=== PATIENT | male | born 1960 | race African-American/Black ===

== ENCOUNTER 2018-11-17 16:23 | Emergency (ER) | payer MEDICARE, OTHER ==
[~2018-11-17] VITALS: Ht 175.3 cm; Wt 86.2 kg
[~2018-11-17 16:23] MED LIST: NKM
--- NOTE | 2018-11-17 16:52 | NUR ---
ED Nurse Note: a/ox4. ambulated in to ER due to left knee pain 08/20 after metal part of a chair landed on his left knee last saturday.
[2018-11-17] MEDS ORDERED: Ketorolac 30mg Inj IM ONE (17:00)
--- NOTE | 2018-11-17 17:04 | Emergency Room Report ---
History of Present Illness General Chief Complaint: Lower Extremity Injury Source: Patient Present Illness HPI 58-year-old male patient presents the ER complaining of left knee pain times 3 days. Patient reports that he was in [place] gambling when a chair broke and fell onto his left knee. Reports pain with ambulation. States not take any pain medication for relief of symptoms. Denies head trauma. Reports has applied ice to affected area. Denies fever, chest pain, shortness of breath. Allergies: Coded Allergies: No Known Allergies (Unverified , 07/13/13) Patient History Past Medical History: see triage record Reviewed Nursing Documentation: PMH: Agreed; PSxH: Agreed Nursing Documentation-PMH Past Medical History: No Stated History Review of Systems All Other Systems: negative except mentioned in HPI Physical Exam Vital Signs Date Time Temp Pulse Resp B/P (MAP) Pulse Ox O2 Delivery O2 Flow Rate FiO2 11/17/18 16:49 98.6 100 22 107/74 96 Room Air Sp02 EP Interpretation: reviewed, normal General Appearance: well appearing, no apparent distress, alert, GCS 15, non- toxic Head: normocephalic, atraumatic Eyes: bilateral eye normal inspection, bilateral eye PERRL ENT: hearing grossly normal, normal pharynx, no angioedema, normal voice, uvula midline, moist mucus membranes Neck: full range of motion Respiratory: lungs clear, normal breath sounds, no rhonchi, no respiratory distress, no accessory muscle use, no wheezing, speaking full sentences Cardiovascular #1: regular rate, rhythm, no edema Musculoskeletal: back normal, digits/nails normal, gait/station normal, normal range of motion, no calf tenderness, Marcel's Sign negative, other - NVI, no edema, no erythema, no defomrity, no laxity with varus or valgus stress, tender - Distal anterior knee, no deformity Skin: no rash Medical Decision Making PA Attestation Dr. Young is my supervising Physician whom patient management has been discussed with. Diagnostic Impression: Primary Impression: Contusion of knee, left ER Course Pt. presents to the ED c/o left knee pain. Ddx considered but are not limited to fracture, sprain, strain, contusion, dislocation. No erythema, no warmth to touch, no fever, nontoxic appearing, low suspicion for septic joint. Soft compartments, no pulselessness, no pallor, no paresthesias, low suspicion for compartment syndrome at this time. Vital signs: are WNL, pt. is afebrile Ordered X-ray and pain medication. ER COURSE Provided with pain medication. An X-ray of the left knee shows negative for acute disease per the preliminary reading. Likely contusion causing pain symptoms. Ravi wrap was applied to the left knee and was checked afterwards by me showing good alignment and support with distal neurovascular functioning intact. Crutches provided. Patient instructed on RICE method: rest, ice, compression, elevation. Patient instructed on rest, ice and heat. Patient instructed to be WBAT Contact information for orthopedic urgent care provided, follow-up with urgent care if unable to followup with primary care provider and get referral to category specialist. Followup with primary care provider. Discuss referral to ortho/pain management/ PT as needed. Discuss further imaging with MRI/CT as needed. DISCHARGE: At this time pt. is stable for d/c to home. Patient is resting comfortably, in no acute distress, nontoxic appearing, talking without difficulty. Will provide printed patient care instructions, and any necessary prescriptions. Patient instructed to follow with primary care provider in 3 - 5 days and to request further follow-up as needed. Care plan and follow up instructions have been discussed with the patient prior to discharge. Take medications as directed. Patient questions asked and answered. Patient reports understanding and agreement to treatment plan. ER precautions given, patient instructed to return to ER immediately for any new or worsening of symptoms. - Please note that this Emergency Department Report was dictated using [employer] burner technology software, occasionally this can lead to erroneous entry secondary to interpretation by the dictation equipment. Other X-Ray Diagnostic Results Other X-Ray Diagnostic Results : X-Ray ordered: left knee # of Views/Limited Vs Complete: 3 View Indication: Pain EP Interpretation: Yes PA Xray: Interpretation reviewed, by supervising MD, and agrees with findings. Interpretation: no dislocation, no soft tissue swelling, no fractures Impression: No acute disease ADITYA Scribe Text Felix Pace PA-C Last Vital Signs Date Time Temp Pulse Resp B/P (MAP) Pulse Ox O2 Delivery O2 Flow Rate FiO2 11/17/18 16:49 98.6 100 22 107/74 96 Room Air Status: improved Disposition: HOME, SELF-CARE Condition: Stable Scripts Ibuprofen* (MOTRIN*) 600 Mg Tablet 600 MG ORAL THREE TIMES A DAY, #30 TAB 0 Refills Prov: Elmer Pace 11/17/18 Patient Instructions: Knee Pain, Aune-hc-Edss Additional Instructions: Patient instructed to follow up with primary care provider and discuss further referral to orthopedics/physical therapy/pain management as needed. If unable to followup with PCP, followup with orthopedic urgent care in 5-7 days , call to schedule appointment. Patient instructed on RICE method: rest, ice, compression, elevation. Patient instructed to WBAT. Take medications as directed. Patient questions asked and answered. ER precautions given, patient instructed to return to ER immediately for any new or worsening of symptoms. [facility] [address] [facility] [facility], [address] [email or web address] Elmer Pace Nov 17, 2018 17:04
[2018-11-17] MEDS ORDERED: IBUPROFEN600 MG ORAL (18:10)
[2018-11-17 18:16] VITALS: BP 110/78
--- NOTE | 2018-11-17 18:17 | NUR ---
ED Nurse Note: Patient is being discharged from medical care. Awake, alert and oriented x4. After care instructions, including prescriptions. Patient verbalized understanding of After care instructions. Patient signed patient consent in the medical record for patient destination upon discharge. All medical devices such as IV and ID band were removed. Ravi wrap applied and educated pt about how to use crutches, pt was able to perform well. Patient ambulated out with all personal belongings with steady gait.
--- NOTE | 2018-11-18 13:35 | Diagnostic Imaging Report ---
Indication: Knee Pain 3 views of the left knee were obtained. Findings: No acute fracture, malalignment, or joint effusion are identified. Joint space is relatively well-maintained. Impression: Negative for acute injury
== END 2018-11-17 18:18 | disposition home or self-care (01) ==
LOC: EMR 17:35
DX: S80.02XA Contusion of left knee, initial encounter (principal); W22.8XXA Striking against or struck by other objects, initial encounter; Y92.9 Unspecified place or not applicable
CPT/HCPCS: 73562; 96372; 99283; J1885

== ENCOUNTER 2019-11-23 20:04 | Inpatient (IN) | payer MEDICARE ==
[~2019-11-23] VITALS: Ht 172.7 cm; Wt 93.0 kg
[~2019-11-23 20:04] MED LIST changes: +IBUPROFEN600 MG ORAL
--- NOTE | 2019-11-23 22:20 | NUR ---
NURSE NOTES: Charge nurse received Report from [facility] regarding pt transfer for direct admission. Will wait for arrival of pt
--- NOTE | 2019-11-23 23:00 | NUR ---
NURSE NOTES: Pt arrived to the unit via gurney, awake. Pt transferred to bed.. A/Ox4, breaths even regular and unlabored on R/A. No s/s of respiratory distress. Pt last Bm 11/23/19 , pt is continent both B/B . Pt skin intact. I.v site on LAC 20G , no i.v fluids. Oriented pt the room, bed . Call light with in reach bed in low position
[2019-11-24] MEDS ORDERED: Morphine Sulfate 2mg/ml Inj(IV/IM USE ONLY) IVP PRN (01:30)
[2019-11-24 04:00] VITALS: BP 139/87
[2019-11-24] MEDS: Morphine Sulfate 2mg/ml Inj(IV/IM USE ONLY) IVP PRN ×4 (04:07→21:16)
[2019-11-24] MEDS: D5 1/2NS w/KCl 20mEq 1,000 ML IV SCH ×2 (05:01→16:20)
[2019-11-24 06:53] LABS: INR 0.9 (0.9-1.1)
[2019-11-24 07:03] LABS: BASOPHILS % (AUTO) 0.9 % (0.0-2.0); EOSINOPHILS % (AUTO) 2.9 % (0.0-3.0); HEMATOCRIT 41.8 % (42.0-52.0); HEMOGLOBIN 14.3 G/DL (14.2-18.0); LYMPHOCYTES % (AUTO) 26.2 % (20.0-45.0); MEAN CORPUSCULAR VOLUME 91 FL (80-99); MONOCYTES % (AUTO) 8.4 % (1.0-10.0); NEUTROPHILS % (AUTO) 61.6 % (45.0-75.0); PLATELET COUNT 252 K/UL (150-450); RED BLOOD COUNT 4.61 M/UL (4.70-6.10); RED CELL DISTRIBUTION WIDTH 10.9 % (11.6-14.8)
[2019-11-24 07:17] LABS: ALANINE AMINOTRANSFERASE 18 U/L (12-78); ALBUMIN/GLOBULIN RATIO 0.7 (1.0-2.7); ALKALINE PHOSPHATASE 48 U/L (46-116); ANION GAP 9 mmol/L (5-15); ASPARTATE AMINO TRANSFERASE 18 U/L (15-37); BILIRUBIN,TOTAL 0.5 MG/DL (0.2-1.0); BLOOD UREA NITROGEN 7 mg/dL (7-18); CALCIUM 8.1 MG/DL (8.5-10.1); CARBON DIOXIDE 26 MMOL/L (21-32); CHLORIDE 107 MMOL/L (98-107); CREATININE 1.2 MG/DL (0.55-1.30); PHOSPHORUS 3.7 MG/DL (2.5-4.9); POTASSIUM 4.4 MMOL/L (3.5-5.1); SODIUM 142 MMOL/L (136-145)
--- NOTE | 2019-11-24 07:30 | NUR ---
NURSE NOTES: Patient is in bed awake and able to verbalize needs. Stable. Denies pain or SOB. Patient is NPO and aware of procedure today. Patient instructed to use call light for assistance, verbalized understanding. Patient is in bed in locked and lowest position with call light within reach. Will continue to monitor.
--- NOTE | 2019-11-24 07:54 | NUR ---
HAND-OFF: Report given to JOCELYNN Cat.
[2019-11-24 08:00] VITALS: BP 97/59
--- NOTE | 2019-11-24 09:03 | NUR ---
RADIOLOGY DEPT., ABDOMEN X-RAY DONE. P.DYE
--- NOTE | 2019-11-24 09:09 | Diagnostic Imaging Report ---
. Indication: Abdominal pain Technique: Supine view of the abdomen Comparison: none Findings: Contrast is seen within the colon. Small bowel loops are gas-filled, prominent in caliber but not frankly dilated. No masses or unusual calcifications. Impression: No acute process
[2019-11-24 12:00] VITALS: BP 105/73
--- NOTE | 2019-11-24 12:23 | Consultation ---
History of Present Illness General Date patient seen: Nov 24, 2019 Reason for Consultation: inpatient management Present Illness HPI 59 year old male with hx of neck fracture 2004 leading to disability, presented to [facility] with CC of crampy abdominal pain after eating a full can of peanuts. His CT of abdomen showed possible early partial SBO. He is transferred to [facility] for further management. Allergies: Coded Allergies: No Known Allergies (Unverified , 07/13/13) Medication History Scheduled Ibuprofen* (Motrin*), 600 MG ORAL THREE TIMES A DAY No Known Medications* (NKM - No Known Medications*), 0 ., (Reported) Patient History Healthcare decision maker Resuscitation status Advanced Directive on File Family History Family History: (1) History of neck injury Review of Systems All Other Systems: negative except mentioned in HPI Physical Exam General Appearance: WD/WN, no apparent distress Lines, tubes and drains: peripheral HEENT: normocephalic, atraumatic Neck: non-tender, normal alignment Respiratory/Chest: chest wall non-tender, lungs clear Breasts: no masses Cardiovascular/Chest: normal peripheral pulses, normal rate Abdomen: normal bowel sounds Genitourinary/Rectal: normal genital exam, normal rectal exam Extremities: normal range of motion Last 24 Hour Vital Signs Date Time Temp Pulse Resp B/P (MAP) Pulse Ox O2 Delivery O2 Flow Rate FiO2 11/24/19 09:00 Room Air 11/24/19 08:00 98.4 81 20 97/59 (72) 81 11/24/19 04:00 98.2 95 20 139/87 (104) 95 11/24/19 01:46 Room Air Intake and Output 11/23/19 11/24/19 19:00 07:00 Intake Total 150 ml Balance 150 ml Intake IV Total 150 ml # Voids 3 # Bowel Movements 3 Laboratory Tests Test 11/24/19 04:45 White Blood Count 9.0 K/UL (4.8-10.8) Red Blood Count 4.61 M/UL (4.70-6.10) L Hemoglobin 14.3 G/DL (14.2-18.0) Hematocrit 41.8 % (42.0-52.0) L Mean Corpuscular Volume 91 FL (80-99) Mean Corpuscular Hemoglobin 31.1 PG (27.0-31.0) H Mean Corpuscular Hemoglobin Concent 34.3 G/DL (32.0-36.0) Red Cell Distribution Width 10.9 % (11.6-14.8) L Platelet Count 252 K/UL (150-450) Mean Platelet Volume 4.6 FL (6.5-10.1) L Neutrophils (%) (Auto) 61.6 % (45.0-75.0) Lymphocytes (%) (Auto) 26.2 % (20.0-45.0) Monocytes (%) (Auto) 8.4 % (1.0-10.0) Eosinophils (%) (Auto) 2.9 % (0.0-3.0) Basophils (%) (Auto) 0.9 % (0.0-2.0) Prothrombin Time 9.8 SEC (9.30-11.50) Prothromb Time International Ratio 0.9 (0.9-1.1) Activated Partial Thromboplast Time 27 SEC (23-33) Sodium Level 142 MMOL/L (136-145) Potassium Level 4.4 MMOL/L (3.5-5.1) Chloride Level 107 MMOL/L (98-107) Carbon Dioxide Level 26 MMOL/L (21-32) Anion Gap 9 mmol/L (5-15) Blood Urea Nitrogen 7 mg/dL (7-18) Creatinine 1.2 MG/DL (0.55-1.30) Estimat Glomerular Filtration Rate > 60 mL/min (>60) Glucose Level 82 MG/DL (74-106) Calcium Level 8.1 MG/DL (8.5-10.1) L Phosphorus Level 3.7 MG/DL (2.5-4.9) Magnesium Level 1.9 MG/DL (1.8-2.4) Total Bilirubin 0.5 MG/DL (0.2-1.0) Aspartate Amino Transf (AST/SGOT) 18 U/L (15-37) Alanine Aminotransferase (ALT/SGPT) 18 U/L (12-78) Alkaline Phosphatase 48 U/L (46-116) Total Protein 7.2 G/DL (6.4-8.2) Albumin 3.0 G/DL (3.4-5.0) L Globulin 4.2 g/dL Albumin/Globulin Ratio 0.7 (1.0-2.7) L Height (Feet): 5 Height (Inches): 10.00 Weight (Pounds): 213 Medications Current Medications Medications (Trade) Dose Ordered Sig/Delmy Route PRN Reason Start Time Stop Time Status Last Admin Dose Admin Acetaminophen (Tylenol) 650 mg Q6H PRN ORAL Mild Pain/Temp > 100.5 11/24/19 01:30 12/24/19 01:29 Dextrose/ Electrolytes 1,000 ml @ 75 mls/hr [id number] IV 11/24/19 03:00 12/24/19 02:59 11/24/19 05:01 Morphine Sulfate (Morphine Sulfate) 2 mg Q4H PRN IVP Moderate Pain (Pain Scale 4-6) 11/24/19 03:30 12/01/19 01:29 11/24/19 11:22 Ondansetron HCl (Zofran) 4 mg Q4HR PRN IVP Nausea & Vomiting 11/24/19 01:45 12/24/19 01:44 Assessment/Plan Problem List: (1) Intractable abdominal pain ICD Codes: R10.9 - Unspecified abdominal pain SNOMED: 36614926 (2) Small bowel obstruction ICD Codes: K56.609 - Unspecified intestinal obstruction, unspecified as to partial versus complete obstruction SNOMED: 902885292 (3) History of neck injury ICD Codes: Z87.828 - Personal history of other (healed) physical injury and trauma SNOMED: 355614410 Assessment/Plan: NPO iv hydration check electrolytes KUB in am check amylase and lipase dvt prophylaxis Eliane La MD Nov 24, 2019 12:23
--- NOTE | 2019-11-24 13:26 | Consultation ---
History of Present Illness General Date patient seen: Nov 24, 2019 Present Illness HPI This is a pleasant 59-year-old male who presented to [facility] after being transferred from [place] for evaluation of potential bowel obstruction. Patient states he was in otherwise normal state of health until 2 nights ago when he was up late watching TV and ended up eating a whole can of peanuts. Went to sleep without issue and woke up feeling crampy abdominal pain. Began to have worsening abdominal discomfort and nausea. Had normal bowel movement but did not feel better. Had some stool softener given to him by his friend and still persisted to have abdominal discomfort then began to have diarrhea. Went to [place] for evaluation at which time was identified to have potential bowel obstruction versus bowel inflammation. Transferred to [facility] for further care and management given insurance reasons. Patient seen, patient evaluated, chart reviewed still complaining abdominal pain and states the morphine makes it feel better pain 6 out of 10 without radiation Allergies: Coded Allergies: No Known Allergies (Unverified , 07/13/13) Medication History Scheduled Ibuprofen* (Motrin*), 600 MG ORAL THREE TIMES A DAY No Known Medications* (NKM - No Known Medications*), 0 ., (Reported) Patient History History Provided By: Patient, Medical Record Healthcare decision maker Resuscitation status Advanced Directive on File Past Medical/Surgical History Past Medical/Surgical History: (1) Drug abuse (2) History of neck injury (3) Small bowel obstruction (4) Intractable abdominal pain Review of Systems Review of Symptoms General ROS: no weight loss or fever Psychological ROS: no depression or mood changes, no memory loss Ophthalmic ROS: no visual changes or eye irritation ENT ROS: no nasal congestion, hearing loss, dizziness Allergy and Immunology ROS: no allergic symptoms or urticaria Hematological and Lymphatic ROS: no swollen glands, unusual bleeding or bruising Endocrine ROS: no polyuria, polydipsia, weight changes, temperature intolerance Respiratory ROS: no cough, shortness of breath, or wheezing Cardiovascular ROS: no chest pain or dyspnea on exertion Gastrointestinal ROS: abdominal pain, bright red blood in stool. Musculoskeletal ROS: no myalgias or arthralgias Neurological ROS: no TIA or stroke symptoms Dermatological ROS: no new or changing skin lesions, rashes or pruritis Physical Exam Physical Exam General appearance: alert, cooperative, no distress, appears stated age Head: Normocephalic, without obvious abnormality, atraumatic Eyes: conjunctivae/corneas clear. PERRL, EOM's intact. Fundi benign Throat: Lips, mucosa, and tongue normal. Teeth and gums normal Neck: supple, symmetrical, trachea midline, no adenopathy, thyroid: not enlarged, symmetric, no tenderness/mass/nodules, no carotid bruit and no JVD Lungs: clear to auscultation bilaterally Heart: regular rate and rhythm, S1, S2 normal, no murmur, click, rub or gallop Abdomen: soft, non-tender. Bowel sounds normal. No masses, no organomegaly Extremities: extremities normal, atraumatic, no cyanosis or edema Pulses: 2+ and symmetric Skin: Skin color, texture, turgor normal. No rashes or lesions Neurologic: Grossly normal Last 24 Hour Vital Signs Date Time Temp Pulse Resp B/P (MAP) Pulse Ox O2 Delivery O2 Flow Rate FiO2 11/24/19 12:00 98.6 70 18 105/73 (84) 97 11/24/19 09:00 Room Air 11/24/19 08:00 98.4 81 20 97/59 (72) 98 11/24/19 04:00 98.2 95 20 139/87 (104) 95 11/24/19 01:46 Room Air Intake and Output 11/23/19 11/24/19 19:00 07:00 Intake Total 150 ml Balance 150 ml Intake IV Total 150 ml # Voids 3 # Bowel Movements 3 Laboratory Tests Test 11/24/19 04:45 White Blood Count 9.0 K/UL (4.8-10.8) Red Blood Count 4.61 M/UL (4.70-6.10) L Hemoglobin 14.3 G/DL (14.2-18.0) Hematocrit 41.8 % (42.0-52.0) L Mean Corpuscular Volume 91 FL (80-99) Mean Corpuscular Hemoglobin 31.1 PG (27.0-31.0) H Mean Corpuscular Hemoglobin Concent 34.3 G/DL (32.0-36.0) Red Cell Distribution Width 10.9 % (11.6-14.8) L Platelet Count 252 K/UL (150-450) Mean Platelet Volume 4.6 FL (6.5-10.1) L Neutrophils (%) (Auto) 61.6 % (45.0-75.0) Lymphocytes (%) (Auto) 26.2 % (20.0-45.0) Monocytes (%) (Auto) 8.4 % (1.0-10.0) Eosinophils (%) (Auto) 2.9 % (0.0-3.0) Basophils (%) (Auto) 0.9 % (0.0-2.0) Prothrombin Time 9.8 SEC (9.30-11.50) Prothromb Time International Ratio 0.9 (0.9-1.1) Activated Partial Thromboplast Time 27 SEC (23-33) Sodium Level 142 MMOL/L (136-145) Potassium Level 4.4 MMOL/L (3.5-5.1) Chloride Level 107 MMOL/L (98-107) Carbon Dioxide Level 26 MMOL/L (21-32) Anion Gap 9 mmol/L (5-15) Blood Urea Nitrogen 7 mg/dL (7-18) Creatinine 1.2 MG/DL (0.55-1.30) Estimat Glomerular Filtration Rate > 60 mL/min (>60) Glucose Level 82 MG/DL (74-106) Calcium Level 8.1 MG/DL (8.5-10.1) L Phosphorus Level 3.7 MG/DL (2.5-4.9) Magnesium Level 1.9 MG/DL (1.8-2.4) Total Bilirubin 0.5 MG/DL (0.2-1.0) Aspartate Amino Transf (AST/SGOT) 18 U/L (15-37) Alanine Aminotransferase (ALT/SGPT) 18 U/L (12-78) Alkaline Phosphatase 48 U/L (46-116) Total Protein 7.2 G/DL (6.4-8.2) Albumin 3.0 G/DL (3.4-5.0) L Globulin 4.2 g/dL Albumin/Globulin Ratio 0.7 (1.0-2.7) L Height (Feet): 5 Height (Inches): 10.00 Weight (Pounds): 213 Medications Current Medications Medications (Trade) Dose Ordered Sig/Delmy Route PRN Reason Start Time Stop Time Status Last Admin Dose Admin Acetaminophen (Tylenol) 650 mg Q6H PRN ORAL Mild Pain/Temp > 100.5 11/24/19 01:30 12/24/19 01:29 Dextrose/ Electrolytes 1,000 ml @ 75 mls/hr [id number] IV 11/24/19 03:00 12/24/19 02:59 11/24/19 05:01 Morphine Sulfate (Morphine Sulfate) 2 mg Q4H PRN IVP Moderate Pain (Pain Scale 4-6) 11/24/19 03:30 12/01/19 01:29 11/24/19 11:22 Ondansetron HCl (Zofran) 4 mg Q4HR PRN IVP Nausea & Vomiting 11/24/19 01:45 12/24/19 01:44 Assessment/Plan Problem List: (1) Small bowel obstruction Assessment & Plan: 59-year-old male with abdominal pain, distention, discomfort. It will hold jar of peanuts 1 night and began to develop pain in the next morning normal bowel movement but now having diarrhea. Attempted a stool softener given to him by his friend. CT from [place] reviewed and considerations of differential were potential partial bowel obstruction versus inflammation of intestines with some dilated intestines and some decompressed no transition point. Currently having loose bowel movement. Abdominal discomfort made better with morphine. Abdominal exam fairly benign. Bowel sounds noted. No acute surgical intervention planned We will monitor with serial abdominal exams Start clear liquid diet ambulate and out of bed A.m. KUB We will follow with recommendations ICD Codes: K56.609 - Unspecified intestinal obstruction, unspecified as to partial versus complete obstruction SNOMED: 468437678 (2) Intractable abdominal pain ICD Codes: R10.9 - Unspecified abdominal pain SNOMED: 32522091 Catrachito Aguero Nov 24, 2019 13:26
--- NOTE | 2019-11-24 15:57 | NUR ---
CASE MANAGEMENT:REVIEW 59 YR OLD MALE TRANSFERRED FROM [facility] CC: ABDOMINAL PAIN SI: INTRACTABLE ABD PAIN. SBO 98.4 81 20 97/59 98% ON RA CA-8.1 IS: IV MORPHINE Q4HRS PRN IVF@75/HR : TO MED/SURG 3 PLAN: NPO IV HYDRATION KUB
[2019-11-24 16:00] VITALS: BP 117/69
--- NOTE | 2019-11-24 18:41 | History & Physical ---
History and Physical History & Physicial Dictated for Int Med-Dr Orr no. [id number]. Eugene Jones MD Nov 24, 2019 18:40
--- NOTE | 2019-11-24 19:30 | NUR ---
HAND-OFF: Report given to Jossy CABEZAS. Patient is stable .
--- NOTE | 2019-11-24 19:31 | NUR ---
NURSE NOTES: Received report & pt from JOCELYNN Cat. Pt lying in bed, a&ox4, in room air. No s/s of acute distress & c/o 7/10 pain. Will give PRN pain med when due & pt verbalized understanding. IV site intact & S/L'd. Bed in lowest position, call light within reach. Will continue to monitor.
[2019-11-24 20:00] VITALS: BP 111/79
[2019-11-25] VITALS (7 sets, daily range): BP systolic 105–124; BP diastolic 70–83
--- NOTE | 2019-11-25 00:30 | History and Physical Report ---
DATE OF ADMISSION: 11/23/2019 NOTE: INCOMPLETE DICTATION CHIEF COMPLAINT: The patient is a 59-year-old male, who presents with a chief complaint of abdominal pain. HISTORY OF PRESENT ILLNESS: Began yesterday, 11/23/2019. The patient states, it began around noon. The patient began to experience cramping abdominal pain. The patient denies nausea, vomiting, diarrhea, or constipation. The patient presented initially to [facility] emergency room. A CT scan of the abdomen revealed a partial small bowel obstruction. The patient is transferred to [facility] for insurance purposes. The patient is admitted with partial small bowel obstruction and abdominal pain. REVIEW OF SYSTEMS: CONSTITUTIONAL: The patient denies weight loss or weight gain. The patient denies fevers or chills. HEENT: The patient denies ear or throat pain. The patient denies headache. CARDIOVASCULAR: The patient denies palpitations or chest pain. CHEST: The patient denies wheeze or shortness of breath. ABDOMEN: The patient complains of generalized abdominal pain. Eugene Jones M.D. DR: ELOISA JOB#: [id number] CC:
--- NOTE | 2019-11-25 00:30 | History and Physical Report ---
DATE OF ADMISSION: 11/23/2019 NOTE: INCOMPLETE DICTATION CHIEF COMPLAINT: The patient is a 59-year-old male, who presents with a chief complaint of abdominal pain. HISTORY OF PRESENT ILLNESS: Began yesterday, 11/23/2019. The patient began to experience abdominal pain, it was cramping in nature. The patient denies nausea, vomiting, or diarrhea. The patient presented initially to [facility] emergency room. A CT scan of the abdomen revealed partial . Eugene Jones M.D. DR: ELOISA JOB#: [id number] CC:
--- NOTE | 2019-11-25 00:45 | History and Physical Report ---
DATE OF ADMISSION: 11/23/2019 CHIEF COMPLAINT: The patient is a 59-year-old male, who presents with a chief complaint of abdominal pain. HISTORY OF PRESENT ILLNESS: Began yesterday November 23, 2019 at approximately noon. The patient began to experience cramping abdominal pain. Abdominal pain was generalized. The patient denies nausea, vomiting, diarrhea, or constipation. The patient initially presented to [facility] emergency room. A CT scan of the abdomen revealed partial small bowel obstruction. The patient is transferred to [facility] for insurance purposes. The patient is admitted with abdominal pain and partial small bowel obstruction. REVIEW OF SYSTEMS: CONSTITUTIONAL: The patient denies weight loss or weight gain. The patient denies fevers or chills. HEENT: The patient denies ear or throat pain. The patient denies headache. CARDIOVASCULAR: The patient denies palpitations or chest pain. CHEST: The patient denies wheeze or shortness of breath. ABDOMEN: The patient complains of generalized abdominal pain as above. The patient denies nausea, vomiting, diarrhea, or constipation. GENITOURINARY: The patient denies dysuria or increased frequency of urination. NEUROMUSCULAR: The patient denies seizures or generalized weakness. PAST MEDICAL HISTORY: Significant for cervical spine fracture in 2004. PAST SURGICAL HISTORY: Significant for cervical spine fracture repair in 2004. CURRENT MEDICATIONS: The patient denies. ALLERGIES: No known drug allergies. SOCIAL HISTORY: The patient is single and is disabled. The patient admits to occasional tobacco use. The patient admits to occasional alcohol use. The patient denies drugs abuse. PHYSICAL EXAMINATION: VITAL SIGNS: Temperature 99, respirations 18, pulse 77, and blood pressure 114/74. GENERAL: The patient is a well-developed and well-nourished male, who is in moderate pain. HEENT: Eyes, pupils are equal and responsive to light and accommodation. Extraocular movements are intact. NECK: Supple without lymphadenopathy. CHEST: Lungs are clear to auscultation bilaterally without wheezes or rales. CARDIOVASCULAR: Regular rate and rhythm. S1, S2 normal without murmurs, rubs, or gallops. ABDOMEN: Soft, distended with decreased bowel sounds. There is pain to palpation in all four quadrants. There is no rebound or guarding noted. EXTREMITIES: Negative for clubbing, cyanosis, or edema. RECTAL/GENITAL: Not performed. NEUROLOGICAL: Cranial nerves II through XII are grossly intact without focal deficits. Motor strength is 5/5 bilaterally. Deep tendon reflexes are 2+ plantar. LABORATORY STUDIES: A CT scan of the abdomen revealed thickening and dilation in the distal small bowel. This is consistent with partial small bowel obstruction. LABORATORY STUDIES: WBC 16.3, hemoglobin 15.4, hematocrit 47.2, and platelets 216,000. Sodium 138, potassium 4.3, chloride 100, CO2 24, BUN 11, and creatinine 1.04. Glucose 100. Liver function tests are within normal limits. ASSESSMENT: This is a 59-year-old male with: 1. Abdominal pain. 2. Partial small bowel obstruction. TREATMENT: Abdominal pain/partial small bowel obstruction. A General Surgery consultation has been obtained with Dr. Catrachito Aguero. The patient may require surgery if small bowel obstruction does not resolve on its own. We will follow recommendations of General Surgery. Eugene Jones M.D. DR: ANA JOB#: [id number] CC:
[2019-11-25] MEDS: Morphine Sulfate 2mg/ml Inj(IV/IM USE ONLY) IVP PRN ×3 (05:55→19:45)
--- NOTE | 2019-11-25 06:00 | NUR ---
NURSE NOTES: Per pt, had another episode of diarrhea around 0500. Toilet hat provided & instructed pt not to flush toilet & call RN on next diarrheal episode.
--- NOTE | 2019-11-25 06:15 | NUR ---
NURSE NOTES: Called dietary & left msg to bring an extra clear liquid soup (2 soups in total) in pt's breakfast tray.
--- NOTE | 2019-11-25 07:11 | NUR ---
HAND-OFF: Report given to Av CABEZAS. Pt in stable condition; Rounds done.
--- NOTE | 2019-11-25 07:18 | NUR ---
NURSE NOTES: Received report from JOCELYNN Fenton. Rounding done with outgoing nurse. Pt is asleep. Bed in lowest position, call light within reach. Will continue to monitor.
[2019-11-25 07:25] LABS: BASOPHILS % (AUTO) 1.1 % (0.0-2.0); EOSINOPHILS % (AUTO) 3.1 % (0.0-3.0); HEMATOCRIT 41.3 % (42.0-52.0); HEMOGLOBIN 14.3 G/DL (14.2-18.0); LYMPHOCYTES % (AUTO) 25.7 % (20.0-45.0); MEAN CORPUSCULAR VOLUME 92 FL (80-99); MONOCYTES % (AUTO) 10.5 % (1.0-10.0); NEUTROPHILS % (AUTO) 59.5 % (45.0-75.0); PLATELET COUNT 251 K/UL (150-450); RED BLOOD COUNT 4.51 M/UL (4.70-6.10); RED CELL DISTRIBUTION WIDTH 12.2 % (11.6-14.8); WHITE BLOOD COUNT 6.8 K/UL (4.8-10.8)
[2019-11-25 07:46] LABS: ALANINE AMINOTRANSFERASE 17 U/L (12-78); ALBUMIN/GLOBULIN RATIO 0.7 (1.0-2.7); ALKALINE PHOSPHATASE 44 U/L (46-116); AMYLASE 57 U/L (25-115); ANION GAP 5 mmol/L (5-15); ASPARTATE AMINO TRANSFERASE 14 U/L (15-37); BILIRUBIN,TOTAL 0.4 MG/DL (0.2-1.0); BLOOD UREA NITROGEN 5 mg/dL (7-18); CALCIUM 8.1 MG/DL (8.5-10.1); CARBON DIOXIDE 29 MMOL/L (21-32); CHLORIDE 107 MMOL/L (98-107); CREATININE 1.1 MG/DL (0.55-1.30); PHOSPHORUS 3.5 MG/DL (2.5-4.9); POTASSIUM 4.4 MMOL/L (3.5-5.1); SODIUM 141 MMOL/L (136-145)
--- NOTE | 2019-11-25 08:48 | NUR ---
NURSE NOTES: Patient is off the unit for x-ray abdomen in stable condition.
--- NOTE | 2019-11-25 09:10 | NUR ---
NURSE NOTES: Patient came back to the unit.
--- NOTE | 2019-11-25 10:11 | NUR ---
RADIOLOGY DEPT., ABDOMEN X-RAY DONE.-P.DYE
--- NOTE | 2019-11-25 12:12 | Pulmonology Progress Note ---
Assessment/Plan Problems: (1) Intractable abdominal pain (2) Small bowel obstruction (3) History of neck injury Assessment/Plan on liquid diet still has diarrhea iv fluids symptomatic treatment check electrolytes amylase and lipase were negative Subjective ROS Limited/Unobtainable: No Constitutional: Reports: no symptoms HEENT: Repors: no symptoms Allergies: Coded Allergies: No Known Allergies (Unverified , 07/13/13) Objective Last 24 Hour Vital Signs Date Time Temp Pulse Resp B/P (MAP) Pulse Ox O2 Delivery O2 Flow Rate FiO2 11/25/19 09:15 98.0 68 16 118/71 (87) 98 11/25/19 09:00 Room Air 11/25/19 04:00 98.0 70 16 124/83 (97) 98 11/25/19 00:00 97.8 65 17 114/73 (87) 99 11/24/19 21:00 Room Air 11/24/19 20:00 97.8 77 18 111/79 (90) 98 11/24/19 16:00 98.4 74 18 117/69 (85) 98 Intake and Output 11/24/19 11/25/19 19:00 07:00 Intake Total 480 ml Balance 480 ml Intake Oral 480 ml # Voids 2 # Bowel Movements 1 General Appearance: WD/WN HEENT: normocephalic, atraumatic Cardiovascular: normal peripheral pulses, normal rate Abdomen: normal bowel sounds, soft, non tender, no organomegaly, no scars Extremities: no cyanosis Skin: no rash 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 Laboratory Tests 11/25/19 06:15: White Blood Count 6.8, Red Blood Count 4.51L, Hemoglobin 14.3, Hematocrit 41.3L , Mean Corpuscular Volume 92, Mean Corpuscular Hemoglobin 31.7H, Mean Corpuscular Hemoglobin Concent 34.6, Red Cell Distribution Width 12.2, Platelet Count 251, Mean Platelet Volume 4.8L, Neutrophils (%) (Auto) 59.5, Lymphocytes ( %) (Auto) 25.7, Monocytes (%) (Auto) 10.5H, Eosinophils (%) (Auto) 3.1H, Basophils (%) (Auto) 1.1, Erythrocyte Sedimentation Rate 36H, Sodium Level 141, Potassium Level 4.4, Chloride Level 107, Carbon Dioxide Level 29, Anion Gap 5, Blood Urea Nitrogen 5L, Creatinine 1.1, Estimat Glomerular Filtration Rate > 60 , Glucose Level 88, Calcium Level 8.1L, Phosphorus Level 3.5, Magnesium Level 2.0, Total Bilirubin 0.4, Aspartate Amino Transf (AST/SGOT) 14L, Alanine Aminotransferase (ALT/SGPT) 17, Alkaline Phosphatase 44L, C-Reactive Protein, Quantitative 1.9H, Total Protein 7.1, Albumin 3.0L, Globulin 4.1, Albumin/ Globulin Ratio 0.7L, Amylase Level 57, Lipase 104 Current Medications Medications (Trade) Dose Ordered Sig/Delmy Route PRN Reason Start Time Stop Time Status Last Admin Dose Admin Acetaminophen (Tylenol) 650 mg Q6H PRN ORAL Mild Pain/Temp > 100.5 11/24/19 01:30 12/24/19 01:29 Morphine Sulfate (Morphine Sulfate) 2 mg Q4H PRN IVP Moderate Pain (Pain Scale 4-6) 11/24/19 03:30 12/01/19 01:29 11/25/19 05:55 Ondansetron HCl (Zofran) 4 mg Q4HR PRN IVP Nausea & Vomiting 11/24/19 01:45 12/24/19 01:44 Eliane La MD Nov 25, 2019 12:12
--- NOTE | 2019-11-25 12:33 | Internal Med Progress Note ---
Subjective Date of Service: Nov 25, 2019 Physician Name Eugene Jones Attending Physician Steve Orr MD Current Medications Medications (Trade) Dose Ordered Sig/Delmy Route PRN Reason Start Time Stop Time Status Last Admin Dose Admin Acetaminophen (Tylenol) 650 mg Q6H PRN ORAL Mild Pain/Temp > 100.5 11/24/19 01:30 12/24/19 01:29 Morphine Sulfate (Morphine Sulfate) 2 mg Q4H PRN IVP Moderate Pain (Pain Scale 4-6) 11/24/19 03:30 12/01/19 01:29 11/25/19 12:14 Ondansetron HCl (Zofran) 4 mg Q4HR PRN IVP Nausea & Vomiting 11/24/19 01:45 12/24/19 01:44 Allergies: Coded Allergies: No Known Allergies (Unverified , 07/13/13) ROS Limited/Unobtainable: No Constitutional: Reports: no symptoms HEENT: Reports: no symptoms Cardiovascular: Reports: no symptoms Respiratory: Reports: no symptoms Gastrointestinal/Abdominal: Reports: abdominal pain Genitourinary: Reports: no symptoms Neurologic/Psychiatric: Reports: no symptoms Subjective 59 YO M admitted with abdominal pain. Now partial small bowel obstruction. Harriet for Int Med-DR Kirby Objective Last Vital Signs Date Time Temp Pulse Resp B/P (MAP) Pulse Ox O2 Delivery O2 Flow Rate FiO2 11/25/19 09:15 98.0 68 16 118/71 (87) 98 11/25/19 09:00 Room Air Laboratory Tests Test 11/25/19 06:15 White Blood Count 6.8 K/UL (4.8-10.8) Red Blood Count 4.51 M/UL (4.70-6.10) L Hemoglobin 14.3 G/DL (14.2-18.0) Hematocrit 41.3 % (42.0-52.0) L Mean Corpuscular Volume 92 FL (80-99) Mean Corpuscular Hemoglobin 31.7 PG (27.0-31.0) H Mean Corpuscular Hemoglobin Concent 34.6 G/DL (32.0-36.0) Red Cell Distribution Width 12.2 % (11.6-14.8) Platelet Count 251 K/UL (150-450) Mean Platelet Volume 4.8 FL (6.5-10.1) L Neutrophils (%) (Auto) 59.5 % (45.0-75.0) Lymphocytes (%) (Auto) 25.7 % (20.0-45.0) Monocytes (%) (Auto) 10.5 % (1.0-10.0) H Eosinophils (%) (Auto) 3.1 % (0.0-3.0) H Basophils (%) (Auto) 1.1 % (0.0-2.0) Erythrocyte Sedimentation Rate 36 MM/HR (0-20) H Sodium Level 141 MMOL/L (136-145) Potassium Level 4.4 MMOL/L (3.5-5.1) Chloride Level 107 MMOL/L (98-107) Carbon Dioxide Level 29 MMOL/L (21-32) Anion Gap 5 mmol/L (5-15) Blood Urea Nitrogen 5 mg/dL (7-18) L Creatinine 1.1 MG/DL (0.55-1.30) Estimat Glomerular Filtration Rate > 60 mL/min (>60) Glucose Level 88 MG/DL (74-106) Calcium Level 8.1 MG/DL (8.5-10.1) L Phosphorus Level 3.5 MG/DL (2.5-4.9) Magnesium Level 2.0 MG/DL (1.8-2.4) Total Bilirubin 0.4 MG/DL (0.2-1.0) Aspartate Amino Transf (AST/SGOT) 14 U/L (15-37) L Alanine Aminotransferase (ALT/SGPT) 17 U/L (12-78) Alkaline Phosphatase 44 U/L (46-116) L C-Reactive Protein, Quantitative 1.9 mg/dL (0.00-0.90) H Total Protein 7.1 G/DL (6.4-8.2) Albumin 3.0 G/DL (3.4-5.0) L Globulin 4.1 g/dL Albumin/Globulin Ratio 0.7 (1.0-2.7) L Amylase Level 57 U/L (25-115) Lipase 104 U/L (73-393) Intake and Output 11/24/19 11/25/19 19:00 07:00 Intake Total 480 ml Balance 480 ml Intake Oral 480 ml # Voids 2 # Bowel Movements 1 Objective PHYSICAL EXAMINATION: GENERAL: The patient is a well-developed and well-nourished male, who is in moderate pain. HEENT: Eyes, pupils are equal and responsive to light and accommodation. Extraocular movements are intact. NECK: Supple without lymphadenopathy. CHEST: Lungs are clear to auscultation bilaterally without wheezes or rales. CARDIOVASCULAR: Regular rate and rhythm. S1, S2 normal without murmurs, rubs, or gallops. ABDOMEN: Soft, distended with decreased bowel sounds. There is pain to palpation in all four quadrants. There is no rebound or guarding noted. EXTREMITIES: Negative for clubbing, cyanosis, or edema. RECTAL/GENITAL: Not performed. NEUROLOGICAL: Cranial nerves II through XII are grossly intact without focal deficits. Motor strength is 5/5 bilaterally. Deep tendon reflexes are 2+ plantar Assessment/Plan Assessment/Plan ASSESSMENT: This is a 59-year-old male with: 1. Abdominal pain. 2. Partial small bowel obstruction. TREATMENT: 1. Abdominal pain/partial small bowel obstruction. A General Surgery consultation has been obtained with Dr. Catrachito Aguero. The patient may require surgery if small bowel obstruction does not resolve on its own. We will follow recommendations of General Surgery. Eugene Jones MD Nov 25, 2019 12:33
--- NOTE | 2019-11-25 14:13 | Diagnostic Imaging Report ---
. Indication: Reason For Exam: ABD PAIN Technique: Supine frontal views of the abdomen Comparison: 114.20 Findings: Contrast is again noted within nondistended colonic loops amount of contrast is decreased compared to one day prior. Question the presence of diverticula in the sigmoid colon. No abnormal gaseous distention of small bowel loops to suggest small bowel obstruction. No evidence to suggest free intraperitoneal air however erect/standing view would be more sensitive. There are degenerative changes in the spine. No acute osseous abnormality. No radiopaque foreign body. IMPRESSION: No radiographic evidence to suggest small bowel obstruction
--- NOTE | 2019-11-25 15:24 | Surgery Progress Note ---
Surgery Progress Note Subjective Symptoms: improved, pain same, tolerating diet Additional Comments states no flatus or BM does not seem reliable states only better with morphine Objective Last 24 Hour Vital Signs Date Time Temp Pulse Resp B/P (MAP) Pulse Ox O2 Delivery O2 Flow Rate FiO2 11/25/19 12:00 98.0 70 16 122/75 (91) 98 11/25/19 09:15 98.0 68 16 118/71 (87) 98 11/25/19 09:00 Room Air 11/25/19 04:00 98.0 70 16 124/83 (97) 98 11/25/19 00:00 97.8 65 17 114/73 (87) 99 11/24/19 21:00 Room Air 11/24/19 20:00 97.8 77 18 111/79 (90) 98 11/24/19 16:00 98.4 74 18 117/69 (85) 98 I&O Intake and Output 11/24/19 11/25/19 19:00 07:00 Intake Total 480 ml Balance 480 ml Intake Oral 480 ml # Voids 2 # Bowel Movements 1 Cardiovascular: RSR Respiratory: clear Abdomen: soft, non-tender, present bowel sounds Extremities: no edema, no tenderness, no cyanosis Laboratory Tests Test 11/25/19 06:15 White Blood Count 6.8 K/UL (4.8-10.8) Red Blood Count 4.51 M/UL (4.70-6.10) L Hemoglobin 14.3 G/DL (14.2-18.0) Hematocrit 41.3 % (42.0-52.0) L Mean Corpuscular Volume 92 FL (80-99) Mean Corpuscular Hemoglobin 31.7 PG (27.0-31.0) H Mean Corpuscular Hemoglobin Concent 34.6 G/DL (32.0-36.0) Red Cell Distribution Width 12.2 % (11.6-14.8) Platelet Count 251 K/UL (150-450) Mean Platelet Volume 4.8 FL (6.5-10.1) L Neutrophils (%) (Auto) 59.5 % (45.0-75.0) Lymphocytes (%) (Auto) 25.7 % (20.0-45.0) Monocytes (%) (Auto) 10.5 % (1.0-10.0) H Eosinophils (%) (Auto) 3.1 % (0.0-3.0) H Basophils (%) (Auto) 1.1 % (0.0-2.0) Erythrocyte Sedimentation Rate 36 MM/HR (0-20) H Sodium Level 141 MMOL/L (136-145) Potassium Level 4.4 MMOL/L (3.5-5.1) Chloride Level 107 MMOL/L (98-107) Carbon Dioxide Level 29 MMOL/L (21-32) Anion Gap 5 mmol/L (5-15) Blood Urea Nitrogen 5 mg/dL (7-18) L Creatinine 1.1 MG/DL (0.55-1.30) Estimat Glomerular Filtration Rate > 60 mL/min (>60) Glucose Level 88 MG/DL (74-106) Calcium Level 8.1 MG/DL (8.5-10.1) L Phosphorus Level 3.5 MG/DL (2.5-4.9) Magnesium Level 2.0 MG/DL (1.8-2.4) Total Bilirubin 0.4 MG/DL (0.2-1.0) Aspartate Amino Transf (AST/SGOT) 14 U/L (15-37) L Alanine Aminotransferase (ALT/SGPT) 17 U/L (12-78) Alkaline Phosphatase 44 U/L (46-116) L C-Reactive Protein, Quantitative 1.9 mg/dL (0.00-0.90) H Total Protein 7.1 G/DL (6.4-8.2) Albumin 3.0 G/DL (3.4-5.0) L Globulin 4.1 g/dL Albumin/Globulin Ratio 0.7 (1.0-2.7) L Amylase Level 57 U/L (25-115) Lipase 104 U/L (73-393) Plan Problems: (1) Small bowel obstruction Assessment & Plan: 59-year-old male with abdominal pain, distention, discomfort. It will hold jar of peanuts 1 night and began to develop pain in the next morning normal bowel movement but now having diarrhea. Attempted a stool softener given to him by his friend. CT from [place] reviewed and considerations of differential were potential partial bowel obstruction versus inflammation of intestines with some dilated intestines and some decompressed no transition point. Currently having loose bowel movement. Abdominal discomfort made better with morphine. Abdominal exam fairly benign. Bowel sounds noted. No acute surgical intervention planned We will monitor with serial abdominal exams Start clear liquid diet ambulate and out of bed small bowel series We will follow with recommendations (2) Intractable abdominal pain Catrachito Aguero Nov 25, 2019 15:24
--- NOTE | 2019-11-25 15:29 | NUR ---
NURSE NOTES: Dr. Conteh came to the unit to see the patient. said that Dr. Toledo will see the pt for the heel wound. Addendum: 11/25/19 at 1941 by Siomara Mendez RN DISCARD PLEASE WRONG PATIENT
--- NOTE | 2019-11-25 19:23 | NUR ---
HAND-OFF: Report given to JOCELYNN Mejias. Pt is stable.
--- NOTE | 2019-11-25 19:25 | NUR ---
NURSE NOTES: Received patient lying on bed, awake and verbally responsive. no sob. with c/o pain on the abdomen rated as 6/10. administered morphine form moderate pain as ordered. flushed per facility protocol. with iv line on the left ac, patent and intact. reiterated to call or ask for help or assistance. bed locked and in lowest position. call light and light button within easy reach. will continue plan of care.
[2019-11-26] MEDS: Morphine Sulfate 2mg/ml Inj(IV/IM USE ONLY) IVP PRN ×3 (00:22→18:50)
[2019-11-26 04:00] VITALS: BP 131/73
[2019-11-26 06:39] LABS: EOSINOPHILS % (AUTO) 2.3 % (0.0-3.0); HEMATOCRIT 43.8 % (42.0-52.0); HEMOGLOBIN 14.8 G/DL (14.2-18.0); LYMPHOCYTES % (AUTO) 31.1 % (20.0-45.0); MEAN CORPUSCULAR VOLUME 92 FL (80-99); MONOCYTES % (AUTO) 10.9 % (1.0-10.0); NEUTROPHILS % (AUTO) 54.7 % (45.0-75.0); PLATELET COUNT 269 K/UL (150-450); RED BLOOD COUNT 4.75 M/UL (4.70-6.10); RED CELL DISTRIBUTION WIDTH 11.9 % (11.6-14.8); WHITE BLOOD COUNT 7.3 K/UL (4.8-10.8)
[2019-11-26 06:59] LABS: ALANINE AMINOTRANSFERASE 18 U/L (12-78); ALBUMIN/GLOBULIN RATIO 0.7 (1.0-2.7); ALKALINE PHOSPHATASE 43 U/L (46-116); ANION GAP 4 mmol/L (5-15); ASPARTATE AMINO TRANSFERASE 13 U/L (15-37); BILIRUBIN,TOTAL 0.4 MG/DL (0.2-1.0); BLOOD UREA NITROGEN 6 mg/dL (7-18); CALCIUM 8.8 MG/DL (8.5-10.1); CARBON DIOXIDE 31 MMOL/L (21-32); CHLORIDE 106 MMOL/L (98-107); CREATININE 1.1 MG/DL (0.55-1.30); PHOSPHORUS 3.6 MG/DL (2.5-4.9); POTASSIUM 4.4 MMOL/L (3.5-5.1); SODIUM 141 MMOL/L (136-145)
--- NOTE | 2019-11-26 07:17 | NUR ---
HAND-OFF: Report given to JOCELYNN Betancourt. Pt in stable condition.
--- NOTE | 2019-11-26 07:17 | NUR ---
NURSE NOTES: Received report from JOCELYNN Mejias. Rounding done with outgoing nurse. Pt a/o x 4, in bed. Patient is asleep. Bed in lowest position, call light within reach. Will continue to monitor.
[2019-11-26 08:00] VITALS: BP 100/71
--- NOTE | 2019-11-26 09:55 | NUR ---
NURSE NOTES: Patient is off the unit for x-ray small bowel w/ gastrografin.
--- NOTE | 2019-11-26 10:42 | NUR ---
RADIOLOGY DEPT, SMALL BOWEL SERIES COMPLETED.-P.DYE
--- NOTE | 2019-11-26 10:45 | NUR ---
NURSE NOTES: Patient came back to the unit in stable condition.
--- NOTE | 2019-11-26 11:18 | NUR ---
NURSE NOTES: Dr. Aguero ordered resume diet. Will put it in.
[2019-11-26 12:00] VITALS: BP 97/64
--- NOTE | 2019-11-26 12:07 | NUR ---
CASE MANAGEMENT:REVIEW 11/26/2019 SI: INTRACTABLE ABD PAIN. SBO 98.2 65 18 100/71 96% ON RA BUN 6 IS: IV MORPHINE Q4HRS PRN : TO MED/SURG 3 EAST PLAN: CLEAR SMALL BOWEL SERIES TODAY
--- NOTE | 2019-11-26 13:10 | Pulmonology Progress Note ---
Assessment/Plan Problems: (1) Intractable abdominal pain (2) Small bowel obstruction (3) History of neck injury Assessment/Plan no new complains, all reviewed on liquid diet still has diarrhea iv fluids symptomatic treatment check electrolytes amylase and lipase were negative Subjective ROS Limited/Unobtainable: No Constitutional: Reports: no symptoms HEENT: Repors: no symptoms Respiratory: Reports: no symptoms Allergies: Coded Allergies: No Known Allergies (Unverified , 07/13/13) Objective Last 24 Hour Vital Signs Date Time Temp Pulse Resp B/P (MAP) Pulse Ox O2 Delivery O2 Flow Rate FiO2 11/26/19 12:00 98.6 61 20 97/64 (75) 97 11/26/19 09:00 Room Air 11/26/19 08:00 98.2 65 18 100/71 (81) 96 11/26/19 04:00 98.1 68 18 131/73 (92) 97 11/25/19 23:36 97.6 65 19 107/72 (84) 95 11/25/19 21:00 Room Air 11/25/19 20:00 98.6 64 18 105/70 (82) 96 11/25/19 16:00 98.2 68 16 115/75 (88) 98 Intake and Output 11/25/19 11/26/19 19:00 07:00 Intake Total 600 ml Balance 600 ml Intake Oral 600 ml # Voids 2 1 # Bowel Movements 1 General Appearance: WD/WN, no acute distress HEENT: normocephalic Respiratory/Chest: chest wall non-tender, lungs clear Cardiovascular: normal peripheral pulses, normal rate Abdomen: soft, non tender, no organomegaly Genitourinary: normal external genitalia Extremities: no clubbing 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 Laboratory Tests 11/26/19 04:55: White Blood Count 7.3, Red Blood Count 4.75, Hemoglobin 14.8, Hematocrit 43.8, Mean Corpuscular Volume 92, Mean Corpuscular Hemoglobin 31.2H, Mean Corpuscular Hemoglobin Concent 33.8, Red Cell Distribution Width 11.9, Platelet Count 269, Mean Platelet Volume 4.4L, Neutrophils (%) (Auto) 54.7, Lymphocytes (%) (Auto) 31.1, Monocytes (%) (Auto) 10.9H, Eosinophils (%) (Auto) 2.3, Basophils (%) ( Auto) 1.0, Sodium Level 141, Potassium Level 4.4, Chloride Level 106, Carbon Dioxide Level 31, Anion Gap 4L, Blood Urea Nitrogen 6L, Creatinine 1.1, Estimat Glomerular Filtration Rate > 60, Glucose Level 91, Calcium Level 8.8, Phosphorus Level 3.6, Magnesium Level 2.2, Total Bilirubin 0.4, Aspartate Amino Transf (AST/SGOT) 13L, Alanine Aminotransferase (ALT/SGPT) 18, Alkaline Phosphatase 43L, Total Protein 7.2, Albumin 3.0L, Globulin 4.2, Albumin/ Globulin Ratio 0.7L Current Medications Medications (Trade) Dose Ordered Sig/Delmy Route PRN Reason Start Time Stop Time Status Last Admin Dose Admin Acetaminophen (Tylenol) 650 mg Q6H PRN ORAL Mild Pain/Temp > 100.5 11/24/19 01:30 12/24/19 01:29 Morphine Sulfate (Morphine Sulfate) 2 mg Q4H PRN IVP Moderate Pain (Pain Scale 4-6) 11/24/19 03:30 12/01/19 01:29 11/26/19 00:22 Ondansetron HCl (Zofran) 4 mg Q4HR PRN IVP Nausea & Vomiting 11/24/19 01:45 12/24/19 01:44 Eliane La MD Nov 26, 2019 13:10
--- NOTE | 2019-11-26 13:54 | Surgery Progress Note ---
Surgery Progress Note Subjective Additional Comments improved pain improved no n/v/f/c xray okdhara Objective Last 24 Hour Vital Signs Date Time Temp Pulse Resp B/P (MAP) Pulse Ox O2 Delivery O2 Flow Rate FiO2 11/26/19 12:00 98.6 61 20 97/64 (75) 97 11/26/19 09:00 Room Air 11/26/19 08:00 98.2 65 18 100/71 (81) 96 11/26/19 04:00 98.1 68 18 131/73 (92) 97 11/25/19 23:36 97.6 65 19 107/72 (84) 95 11/25/19 21:00 Room Air 11/25/19 20:00 98.6 64 18 105/70 (82) 96 11/25/19 16:00 98.2 68 16 115/75 (88) 98 I&O Intake and Output 11/25/19 11/26/19 19:00 07:00 Intake Total 600 ml Balance 600 ml Intake Oral 600 ml # Voids 2 1 # Bowel Movements 1 Cardiovascular: RSR Respiratory: clear Abdomen: soft, non-tender, present bowel sounds, non-distended Extremities: no edema, no tenderness, no cyanosis Laboratory Tests Test 11/26/19 04:55 White Blood Count 7.3 K/UL (4.8-10.8) Red Blood Count 4.75 M/UL (4.70-6.10) Hemoglobin 14.8 G/DL (14.2-18.0) Hematocrit 43.8 % (42.0-52.0) Mean Corpuscular Volume 92 FL (80-99) Mean Corpuscular Hemoglobin 31.2 PG (27.0-31.0) H Mean Corpuscular Hemoglobin Concent 33.8 G/DL (32.0-36.0) Red Cell Distribution Width 11.9 % (11.6-14.8) Platelet Count 269 K/UL (150-450) Mean Platelet Volume 4.4 FL (6.5-10.1) L Neutrophils (%) (Auto) 54.7 % (45.0-75.0) Lymphocytes (%) (Auto) 31.1 % (20.0-45.0) Monocytes (%) (Auto) 10.9 % (1.0-10.0) H Eosinophils (%) (Auto) 2.3 % (0.0-3.0) Basophils (%) (Auto) 1.0 % (0.0-2.0) Sodium Level 141 MMOL/L (136-145) Potassium Level 4.4 MMOL/L (3.5-5.1) Chloride Level 106 MMOL/L (98-107) Carbon Dioxide Level 31 MMOL/L (21-32) Anion Gap 4 mmol/L (5-15) L Blood Urea Nitrogen 6 mg/dL (7-18) L Creatinine 1.1 MG/DL (0.55-1.30) Estimat Glomerular Filtration Rate > 60 mL/min (>60) Glucose Level 91 MG/DL (74-106) Calcium Level 8.8 MG/DL (8.5-10.1) Phosphorus Level 3.6 MG/DL (2.5-4.9) Magnesium Level 2.2 MG/DL (1.8-2.4) Total Bilirubin 0.4 MG/DL (0.2-1.0) Aspartate Amino Transf (AST/SGOT) 13 U/L (15-37) L Alanine Aminotransferase (ALT/SGPT) 18 U/L (12-78) Alkaline Phosphatase 43 U/L (46-116) L Total Protein 7.2 G/DL (6.4-8.2) Albumin 3.0 G/DL (3.4-5.0) L Globulin 4.2 g/dL Albumin/Globulin Ratio 0.7 (1.0-2.7) L Plan Problems: (1) Small bowel obstruction Assessment & Plan: 59-year-old male with abdominal pain, distention, discomfort. It will hold jar of peanuts 1 night and began to develop pain in the next morning normal bowel movement but now having diarrhea. Attempted a stool softener given to him by his friend. CT from [place] reviewed and considerations of differential were potential partial bowel obstruction versus inflammation of intestines with some dilated intestines and some decompressed no transition point. Currently having loose bowel movement. Abdominal discomfort made better with morphine. Abdominal exam fairly benign. Bowel sounds noted. No acute surgical intervention planned We will monitor with serial abdominal exams diet as tolerated ambulate and out of bed d/c planning We will follow with recommendations (2) Intractable abdominal pain Catrachito Aguero Nov 26, 2019 13:54
--- NOTE | 2019-11-26 14:34 | Diagnostic Imaging Report ---
Indication: Abdominal pain, prior outside imaging demonstrating possible small bowel obstruction Technique: Patient ingested water-soluble contrast, and serial overhead images obtained of the abdomen. No fluoroscopy utilized. Total number of images-8 Comparison: Abdominal radiograph dated 11/25/2019 Findings: [place] Wrapper Maker film demonstrates a small amount of residual contrast within the colon, decreased from the prior study. There is extensive colonic diverticulosis again demonstrated. No gaseous distention of small bowel. No masses or unusual calcifications. After contrast ingestion, there is brisk for transit of contrast no small bowel. By 30 minutes, contrast is seen within the colon. Small bowel is normal in caliber, demonstrates normal mucosal pattern. Impression: Negative water-soluble contrast small bowel study. No evidence of bowel obstruction
[2019-11-26 16:00] VITALS: BP 104/77
--- NOTE | 2019-11-26 19:10 | NUR ---
HAND-OFF: Report given to JOCELYNN Mejias. Pt is stable.
--- NOTE | 2019-11-26 19:18 | Internal Med Progress Note ---
Subjective Date of Service: Nov 26, 2019 Physician Name Eugene Jones Attending Physician Steve Orr MD Current Medications Medications (Trade) Dose Ordered Sig/Delmy Route PRN Reason Start Time Stop Time Status Last Admin Dose Admin Acetaminophen (Tylenol) 650 mg Q6H PRN ORAL Mild Pain/Temp > 100.5 11/24/19 01:30 12/24/19 01:29 Morphine Sulfate (Morphine Sulfate) 2 mg Q4H PRN IVP Moderate Pain (Pain Scale 4-6) 11/24/19 03:30 12/01/19 01:29 11/26/19 18:50 Ondansetron HCl (Zofran) 4 mg Q4HR PRN IVP Nausea & Vomiting 11/24/19 01:45 12/24/19 01:44 Allergies: Coded Allergies: No Known Allergies (Unverified , 07/13/13) ROS Limited/Unobtainable: No Constitutional: Reports: no symptoms HEENT: Reports: no symptoms Cardiovascular: Reports: no symptoms Respiratory: Reports: no symptoms Gastrointestinal/Abdominal: Reports: abdominal pain Genitourinary: Reports: no symptoms Neurologic/Psychiatric: Reports: no symptoms Subjective 59 YO M admitted with abdominal pain. Now partial small bowel obstruction. [place] for Int Med-DR Kirby Objective Last Vital Signs Date Time Temp Pulse Resp B/P (MAP) Pulse Ox O2 Delivery O2 Flow Rate FiO2 11/26/19 16:00 98.4 62 18 104/77 (86) 98 11/26/19 09:00 Room Air Laboratory Tests Test 11/26/19 04:55 White Blood Count 7.3 K/UL (4.8-10.8) Red Blood Count 4.75 M/UL (4.70-6.10) Hemoglobin 14.8 G/DL (14.2-18.0) Hematocrit 43.8 % (42.0-52.0) Mean Corpuscular Volume 92 FL (80-99) Mean Corpuscular Hemoglobin 31.2 PG (27.0-31.0) H Mean Corpuscular Hemoglobin Concent 33.8 G/DL (32.0-36.0) Red Cell Distribution Width 11.9 % (11.6-14.8) Platelet Count 269 K/UL (150-450) Mean Platelet Volume 4.4 FL (6.5-10.1) L Neutrophils (%) (Auto) 54.7 % (45.0-75.0) Lymphocytes (%) (Auto) 31.1 % (20.0-45.0) Monocytes (%) (Auto) 10.9 % (1.0-10.0) H Eosinophils (%) (Auto) 2.3 % (0.0-3.0) Basophils (%) (Auto) 1.0 % (0.0-2.0) Sodium Level 141 MMOL/L (136-145) Potassium Level 4.4 MMOL/L (3.5-5.1) Chloride Level 106 MMOL/L (98-107) Carbon Dioxide Level 31 MMOL/L (21-32) Anion Gap 4 mmol/L (5-15) L Blood Urea Nitrogen 6 mg/dL (7-18) L Creatinine 1.1 MG/DL (0.55-1.30) Estimat Glomerular Filtration Rate > 60 mL/min (>60) Glucose Level 91 MG/DL (74-106) Calcium Level 8.8 MG/DL (8.5-10.1) Phosphorus Level 3.6 MG/DL (2.5-4.9) Magnesium Level 2.2 MG/DL (1.8-2.4) Total Bilirubin 0.4 MG/DL (0.2-1.0) Aspartate Amino Transf (AST/SGOT) 13 U/L (15-37) L Alanine Aminotransferase (ALT/SGPT) 18 U/L (12-78) Alkaline Phosphatase 43 U/L (46-116) L Total Protein 7.2 G/DL (6.4-8.2) Albumin 3.0 G/DL (3.4-5.0) L Globulin 4.2 g/dL Albumin/Globulin Ratio 0.7 (1.0-2.7) L Intake and Output 11/25/19 11/26/19 19:00 07:00 Intake Total 600 ml Balance 600 ml Intake Oral 600 ml # Voids 2 1 # Bowel Movements 1 Objective PHYSICAL EXAMINATION: GENERAL: The patient is a well-developed and well-nourished male, who is in moderate pain. HEENT: Eyes, pupils are equal and responsive to light and accommodation. Extraocular movements are intact. NECK: Supple without lymphadenopathy. CHEST: Lungs are clear to auscultation bilaterally without wheezes or rales. CARDIOVASCULAR: Regular rate and rhythm. S1, S2 normal without murmurs, rubs, or gallops. ABDOMEN: Soft, distended with decreased bowel sounds. There is pain to palpation in all four quadrants. There is no rebound or guarding noted. EXTREMITIES: Negative for clubbing, cyanosis, or edema. RECTAL/GENITAL: Not performed. NEUROLOGICAL: Cranial nerves II through XII are grossly intact without focal deficits. Motor strength is 5/5 bilaterally. Deep tendon reflexes are 2+ plantar Assessment/Plan Assessment/Plan ASSESSMENT: This is a 59-year-old male with: 1. Abdominal pain. 2. Partial small bowel obstruction. TREATMENT: 1. Abdominal pain/partial small bowel obstruction. A General Surgery consultation has been obtained with Dr. Catrachito Aguero. The patient may require surgery if small bowel obstruction does not resolve on its own. We will follow recommendations of General Surgery. Eugene Jones MD Nov 26, 2019 19:18
--- NOTE | 2019-11-26 19:30 | NUR ---
NURSE NOTES: Received report Serafin, JOCELYNN and rounds made without going nurse. Received pt in bed, AOx4, pain level 2/10, no distress noted. Bed in lowest position and locked, side rails up x 2, call light within reach. Will continue to monitor.
[2019-11-26 20:00] VITALS: BP 109/65
[2019-11-26 23:53] VITALS: BP 107/76
[2019-11-27 04:52] VITALS: BP 109/65
[2019-11-27 06:39] LABS: ALANINE AMINOTRANSFERASE 21 U/L (12-78); ALBUMIN 3.2 G/DL (3.4-5.0); ALBUMIN/GLOBULIN RATIO 0.8 (1.0-2.7); ALKALINE PHOSPHATASE 45 U/L (46-116); ANION GAP 9 mmol/L (5-15); ASPARTATE AMINO TRANSFERASE 14 U/L (15-37); BILIRUBIN,TOTAL 0.2 MG/DL (0.2-1.0); BLOOD UREA NITROGEN 13 mg/dL (7-18); CALCIUM 8.8 MG/DL (8.5-10.1); CARBON DIOXIDE 26 MMOL/L (21-32); CHLORIDE 105 MMOL/L (98-107); CREATININE 1.2 MG/DL (0.55-1.30); SODIUM 140 MMOL/L (136-145)
[2019-11-27 06:44] LABS: BASOPHILS % (AUTO) 0.8 % (0.0-2.0); EOSINOPHILS % (AUTO) 2.9 % (0.0-3.0); HEMATOCRIT 43.5 % (42.0-52.0); HEMOGLOBIN 14.8 G/DL (14.2-18.0); MEAN CORPUSCULAR VOLUME 91 FL (80-99); MONOCYTES % (AUTO) 9.8 % (1.0-10.0); NEUTROPHILS % (AUTO) 58.5 % (45.0-75.0); PLATELET COUNT 279 K/UL (150-450); RED BLOOD COUNT 4.79 M/UL (4.70-6.10); RED CELL DISTRIBUTION WIDTH 12.1 % (11.6-14.8); WHITE BLOOD COUNT 7.9 K/UL (4.8-10.8)
--- NOTE | 2019-11-27 07:36 | NUR ---
HAND-OFF: Report given to JOCELYNN Bell. Pt in stable condition.
[2019-11-27 08:00] VITALS: BP 105/68
[2019-11-27] MEDS: Morphine Sulfate 2mg/ml Inj(IV/IM USE ONLY) IVP PRN ×3 (08:20→20:33)
[2019-11-27 12:00] VITALS: BP 103/63
--- NOTE | 2019-11-27 12:32 | Pulmonology Progress Note ---
Assessment/Plan Problems: (1) Intractable abdominal pain (2) Small bowel obstruction (3) History of neck injury Assessment/Plan no new complains, all reviewed doing better still has diarrhea symptomatic treatment check electrolytes amylase and lipase were negative dc planning for am Subjective ROS Limited/Unobtainable: No Constitutional: Reports: no symptoms Respiratory: Reports: no symptoms Allergies: Coded Allergies: No Known Allergies (Unverified , 07/13/13) Objective Last 24 Hour Vital Signs Date Time Temp Pulse Resp B/P (MAP) Pulse Ox O2 Delivery O2 Flow Rate FiO2 11/27/19 09:45 Room Air 11/27/19 08:50 97.6 11/27/19 08:00 98.2 66 18 105/68 (80) 97 11/27/19 04:52 97.6 64 18 109/65 (80) 97 11/26/19 23:53 98.1 70 18 107/76 (86) 96 11/26/19 21:00 Room Air 11/26/19 20:00 97.5 68 17 109/65 (80) 98 11/26/19 16:00 98.4 62 18 104/77 (86) 98 Intake and Output 11/26/19 11/27/19 19:00 07:00 Intake Total 500 ml Balance 500 ml Intake Oral 500 ml # Voids 3 General Appearance: WD/WN HEENT: normocephalic Respiratory/Chest: chest wall non-tender, no respiratory distress Cardiovascular: normal peripheral pulses Abdomen: normal bowel sounds, soft, non tender Extremities: no cyanosis Skin: no rash, no ulcers Laboratory Tests 11/27/19 04:50: White Blood Count 7.9, Red Blood Count 4.79, Hemoglobin 14.8, Hematocrit 43.5, Mean Corpuscular Volume 91, Mean Corpuscular Hemoglobin 30.9, Mean Corpuscular Hemoglobin Concent 33.9, Red Cell Distribution Width 12.1, Platelet Count 279, Mean Platelet Volume 4.6L, Neutrophils (%) (Auto) 58.5, Lymphocytes (%) (Auto) 28.0, Monocytes (%) (Auto) 9.8, Eosinophils (%) (Auto) 2.9, Basophils (%) (Auto ) 0.8, Erythrocyte Sedimentation Rate 36H, Sodium Level 140, Potassium Level 4.0 , Chloride Level 105, Carbon Dioxide Level 26, Anion Gap 9, Blood Urea Nitrogen 13, Creatinine 1.2, Estimat Glomerular Filtration Rate > 60, Glucose Level 96, Calcium Level 8.8, Phosphorus Level 4.0, Magnesium Level 2.0, Total Bilirubin 0.2, Aspartate Amino Transf (AST/SGOT) 14L, Alanine Aminotransferase (ALT/SGPT) 21, Alkaline Phosphatase 45L, C-Reactive Protein, Quantitative 0.8, Total Protein 7.4, Albumin 3.2L, Globulin 4.2, Albumin/Globulin Ratio 0.8L Current Medications Medications (Trade) Dose Ordered Sig/Delmy Route PRN Reason Start Time Stop Time Status Last Admin Dose Admin Acetaminophen (Tylenol) 650 mg Q6H PRN ORAL Mild Pain/Temp > 100.5 11/24/19 01:30 12/24/19 01:29 Morphine Sulfate (Morphine Sulfate) 2 mg Q4H PRN IVP Moderate Pain (Pain Scale 4-6) 11/24/19 03:30 12/01/19 01:29 11/27/19 08:20 Ondansetron HCl (Zofran) 4 mg Q4HR PRN IVP Nausea & Vomiting 11/24/19 01:45 12/24/19 01:44 Eliane La MD Nov 27, 2019 12:31
--- NOTE | 2019-11-27 13:28 | NUR ---
CASE MANAGEMENT:REVIEW 11/27/2019 SI: INTRACTABLE ABD PAIN. SBO 97.9 66 18 103/63 98% ON RA IS: IV MORPHINE Q4HRS PRN : TO MED/SURG 3 EAST PLAN: CONTROL PAIN CONTROL DIARRHEA POSS DC IN AM
[2019-11-27 16:00] VITALS: BP 99/66
--- NOTE | 2019-11-27 16:58 | Surgery Progress Note ---
Surgery Progress Note Subjective Symptoms: improved, tolerating diet, passing flatus, BM, pain decreased Objective Last 24 Hour Vital Signs Date Time Temp Pulse Resp B/P (MAP) Pulse Ox O2 Delivery O2 Flow Rate FiO2 11/27/19 13:22 97.6 11/27/19 12:00 97.9 66 18 103/63 (76) 98 11/27/19 09:45 Room Air 11/27/19 08:00 98.2 66 18 105/68 (80) 97 11/27/19 04:52 97.6 64 18 109/65 (80) 97 11/26/19 23:53 98.1 70 18 107/76 (86) 96 11/26/19 21:00 Room Air 11/26/19 20:00 97.5 68 17 109/65 (80) 98 I&O Intake and Output 11/26/19 11/27/19 19:00 07:00 Intake Total 500 ml Balance 500 ml Intake Oral 500 ml # Voids 3 Cardiovascular: RSR Respiratory: clear Abdomen: soft, non-tender, present bowel sounds Extremities: no edema, no tenderness, no cyanosis Laboratory Tests Test 11/27/19 04:50 White Blood Count 7.9 K/UL (4.8-10.8) Red Blood Count 4.79 M/UL (4.70-6.10) Hemoglobin 14.8 G/DL (14.2-18.0) Hematocrit 43.5 % (42.0-52.0) Mean Corpuscular Volume 91 FL (80-99) Mean Corpuscular Hemoglobin 30.9 PG (27.0-31.0) Mean Corpuscular Hemoglobin Concent 33.9 G/DL (32.0-36.0) Red Cell Distribution Width 12.1 % (11.6-14.8) Platelet Count 279 K/UL (150-450) Mean Platelet Volume 4.6 FL (6.5-10.1) L Neutrophils (%) (Auto) 58.5 % (45.0-75.0) Lymphocytes (%) (Auto) 28.0 % (20.0-45.0) Monocytes (%) (Auto) 9.8 % (1.0-10.0) Eosinophils (%) (Auto) 2.9 % (0.0-3.0) Basophils (%) (Auto) 0.8 % (0.0-2.0) Erythrocyte Sedimentation Rate 36 MM/HR (0-20) H Sodium Level 140 MMOL/L (136-145) Potassium Level 4.0 MMOL/L (3.5-5.1) Chloride Level 105 MMOL/L (98-107) Carbon Dioxide Level 26 MMOL/L (21-32) Anion Gap 9 mmol/L (5-15) Blood Urea Nitrogen 13 mg/dL (7-18) Creatinine 1.2 MG/DL (0.55-1.30) Estimat Glomerular Filtration Rate > 60 mL/min (>60) Glucose Level 96 MG/DL (74-106) Calcium Level 8.8 MG/DL (8.5-10.1) Phosphorus Level 4.0 MG/DL (2.5-4.9) Magnesium Level 2.0 MG/DL (1.8-2.4) Total Bilirubin 0.2 MG/DL (0.2-1.0) Aspartate Amino Transf (AST/SGOT) 14 U/L (15-37) L Alanine Aminotransferase (ALT/SGPT) 21 U/L (12-78) Alkaline Phosphatase 45 U/L (46-116) L C-Reactive Protein, Quantitative 0.8 mg/dL (0.00-0.90) Total Protein 7.4 G/DL (6.4-8.2) Albumin 3.2 G/DL (3.4-5.0) L Globulin 4.2 g/dL Albumin/Globulin Ratio 0.8 (1.0-2.7) L Plan Problems: (1) Small bowel obstruction Assessment & Plan: 59-year-old male with abdominal pain, distention, discomfort. It will hold jar of peanuts 1 night and began to develop pain in the next morning normal bowel movement but now having diarrhea. Attempted a stool softener given to him by his friend. CT from [place] reviewed and considerations of differential were potential partial bowel obstruction versus inflammation of intestines with some dilated intestines and some decompressed no transition point. Currently having loose bowel movement. Abdominal discomfort made better with morphine. Abdominal exam fairly benign. Bowel sounds noted. Findings: Teleprinter Installer film demonstrates a small amount of residual contrast within the colon, decreased from the prior study. There is extensive colonic diverticulosis again demonstrated. No gaseous distention of small bowel. No masses or unusual calcifications. After contrast ingestion, there is brisk for transit of contrast no small bowel. By 30 minutes, contrast is seen within the colon. Small bowel is normal in caliber, demonstrates normal mucosal pattern. Impression: Negative water-soluble contrast small bowel study. No evidence of bowel obstruction No acute surgical intervention planned We will monitor with serial abdominal exams diet as tolerated ambulate and out of bed d/c planning We will follow with recommendations (2) Intractable abdominal pain Catrachito Aguero Nov 27, 2019 16:58
--- NOTE | 2019-11-27 19:40 | NUR ---
NURSE NOTES: Patient is in bed, awake and alert x4. On room air with no signs of distress or SOB. Bed locked and in lowest position. Call light within reach. Will continue to monitor.
[2019-11-27 20:00] VITALS: BP 123/74
--- NOTE | 2019-11-27 23:20 | Internal Med Progress Note ---
Subjective Physician Name Steve Orr Attending Physician Steve Orr MD Current Medications Medications (Trade) Dose Ordered Sig/Delmy Route PRN Reason Start Time Stop Time Status Last Admin Dose Admin Acetaminophen (Tylenol) 650 mg Q6H PRN ORAL Mild Pain/Temp > 100.5 11/24/19 01:30 12/24/19 01:29 Morphine Sulfate (Morphine Sulfate) 2 mg Q4H PRN IVP Moderate Pain (Pain Scale 4-6) 11/24/19 03:30 12/01/19 01:29 11/27/19 20:33 Ondansetron HCl (Zofran) 4 mg Q4HR PRN IVP Nausea & Vomiting 11/24/19 01:45 12/24/19 01:44 Allergies: Coded Allergies: No Known Allergies (Unverified , 07/13/13) Subjective Awake, alert, responsive, denies any chest pain or shortness of breath, denies any nausea or vomiting, complains less generalized abdominal pain. Objective Last Vital Signs Date Time Temp Pulse Resp B/P (MAP) Pulse Ox O2 Delivery O2 Flow Rate FiO2 11/27/19 21:00 Room Air 11/27/19 20:00 98.2 73 18 123/74 (90) 97 Laboratory Tests Test 11/27/19 04:50 White Blood Count 7.9 K/UL (4.8-10.8) Red Blood Count 4.79 M/UL (4.70-6.10) Hemoglobin 14.8 G/DL (14.2-18.0) Hematocrit 43.5 % (42.0-52.0) Mean Corpuscular Volume 91 FL (80-99) Mean Corpuscular Hemoglobin 30.9 PG (27.0-31.0) Mean Corpuscular Hemoglobin Concent 33.9 G/DL (32.0-36.0) Red Cell Distribution Width 12.1 % (11.6-14.8) Platelet Count 279 K/UL (150-450) Mean Platelet Volume 4.6 FL (6.5-10.1) L Neutrophils (%) (Auto) 58.5 % (45.0-75.0) Lymphocytes (%) (Auto) 28.0 % (20.0-45.0) Monocytes (%) (Auto) 9.8 % (1.0-10.0) Eosinophils (%) (Auto) 2.9 % (0.0-3.0) Basophils (%) (Auto) 0.8 % (0.0-2.0) Erythrocyte Sedimentation Rate 36 MM/HR (0-20) H Sodium Level 140 MMOL/L (136-145) Potassium Level 4.0 MMOL/L (3.5-5.1) Chloride Level 105 MMOL/L (98-107) Carbon Dioxide Level 26 MMOL/L (21-32) Anion Gap 9 mmol/L (5-15) Blood Urea Nitrogen 13 mg/dL (7-18) Creatinine 1.2 MG/DL (0.55-1.30) Estimat Glomerular Filtration Rate > 60 mL/min (>60) Glucose Level 96 MG/DL (74-106) Calcium Level 8.8 MG/DL (8.5-10.1) Phosphorus Level 4.0 MG/DL (2.5-4.9) Magnesium Level 2.0 MG/DL (1.8-2.4) Total Bilirubin 0.2 MG/DL (0.2-1.0) Aspartate Amino Transf (AST/SGOT) 14 U/L (15-37) L Alanine Aminotransferase (ALT/SGPT) 21 U/L (12-78) Alkaline Phosphatase 45 U/L (46-116) L C-Reactive Protein, Quantitative 0.8 mg/dL (0.00-0.90) Total Protein 7.4 G/DL (6.4-8.2) Albumin 3.2 G/DL (3.4-5.0) L Globulin 4.2 g/dL Albumin/Globulin Ratio 0.8 (1.0-2.7) L Intake and Output 11/26/19 11/27/19 19:00 07:00 Intake Total 500 ml Balance 500 ml Intake Oral 500 ml # Voids 3 Objective Physical Exam General: No acute distress, awake and alert HEENT: NCAT, sclera anicteric, PERRL, EOMI. Neck: Supple, no significant jugular venous distention, Lungs: Good inspiratory effort, no Wheeze or Rales. Heart: Regular rate and rhythm, normal S1/S2, no murmurs/gallops Abdomen: soft, less tender, nondistended. Normoactive bowel sounds. / Rectal: Refused and deferred. Extremities: No Cyanosis , clubbing or edema. Neuro: A&O x 3, Able to move all extremities Skin: warm, no rashes or lesions Psych: Normal mood and affect Assessment/Plan Assessment/Plan ASSESSMENT: This is a 59-year-old male with: 1. Abdominal pain. 2. Partial small bowel obstruction. TREATMENT: 1. Abdominal pain/partial small bowel obstruction. A General Surgery consultation has been obtained with Dr. Catrachito Aguero. The patient may require surgery if small bowel obstruction does not resolve on its own. We will follow recommendations of General Surgery. DC Home in AM. Steve Orr MD Nov 27, 2019 23:20
[2019-11-28] VITALS: BP 102/71
[2019-11-28] MEDS: Morphine Sulfate 2mg/ml Inj(IV/IM USE ONLY) IVP PRN (00:44)
[2019-11-28 04:00] VITALS: BP_SYST 101; BP_SYST 109; BP_DIAS 73
--- NOTE | 2019-11-28 07:30 | NUR ---
NURSE NOTES: Patient is in bed, asleep but arousable. awake, alert, oriented x4. On room air. no signs of distress or SOB. No c/o pain/discomfort. anticipate discharge today. IV access patent and intact. Bed locked and in lowest position. siderails are upx2. Call light within reach. Will continue to monitor.
--- NOTE | 2019-11-28 07:33 | NUR ---
HAND-OFF: Report given to AUTUMN Metzger.
[2019-11-28 08:00] VITALS: BP 101/65
--- NOTE | 2019-11-28 09:08 | Pulmonology Progress Note ---
Assessment/Plan Problems: (1) Intractable abdominal pain (2) Small bowel obstruction (3) History of neck injury Assessment/Plan no new complains, all reviewed doing better symptomatic treatment check electrolytes amylase and lipase were negative dc planning for today Subjective ROS Limited/Unobtainable: No Constitutional: Reports: no symptoms HEENT: Repors: no symptoms Allergies: Coded Allergies: No Known Allergies (Unverified , 07/13/13) Objective Last 24 Hour Vital Signs Date Time Temp Pulse Resp B/P (MAP) Pulse Ox O2 Delivery O2 Flow Rate FiO2 11/28/19 08:00 98.3 71 18 101/65 (77) 96 11/28/19 04:00 97.9 73 18 101/73 (82) 97 11/28/19 00:00 98.2 82 18 102/71 (81) 96 11/27/19 21:00 Room Air 11/27/19 20:00 98.2 73 18 123/74 (90) 97 11/27/19 16:00 98.1 63 18 99/66 (77) 96 11/27/19 13:22 97.6 11/27/19 12:00 97.9 66 18 103/63 (76) 98 11/27/19 09:45 Room Air Intake and Output 11/27/19 11/28/19 19:00 07:00 Intake Total 300 ml 480 ml Balance 300 ml 480 ml Intake Oral 300 ml 480 ml # Voids 1 # Bowel Movements 1 General Appearance: WD/WN HEENT: normocephalic, atraumatic Respiratory/Chest: chest wall non-tender, lungs clear Cardiovascular: normal peripheral pulses, normal rate Abdomen: normal bowel sounds, soft, non tender Genitourinary: normal external genitalia Extremities: no cyanosis Skin: no rash Neurologic/Psychiatric: home health aide II-XII grossly normal Current Medications Medications (Trade) Dose Ordered Sig/Delmy Route PRN Reason Start Time Stop Time Status Last Admin Dose Admin Acetaminophen (Tylenol) 650 mg Q6H PRN ORAL Mild Pain/Temp > 100.5 11/24/19 01:30 12/24/19 01:29 Morphine Sulfate (Morphine Sulfate) 2 mg Q4H PRN IVP Moderate Pain (Pain Scale 4-6) 11/24/19 03:30 12/01/19 01:29 11/28/19 00:44 Ondansetron HCl (Zofran) 4 mg Q4HR PRN IVP Nausea & Vomiting 11/24/19 01:45 12/24/19 01:44 Eliane La MD Nov 28, 2019 09:08
--- NOTE | 2019-11-28 11:33 | Surgery Progress Note ---
Surgery Progress Note Subjective Symptoms: improved, pain absent, tolerating diet, voiding well, passing flatus , BM Objective Last 24 Hour Vital Signs Date Time Temp Pulse Resp B/P (MAP) Pulse Ox O2 Delivery O2 Flow Rate FiO2 11/28/19 09:16 Room Air 11/28/19 08:00 98.3 71 18 101/65 (77) 96 11/28/19 04:00 97.9 73 18 101/73 (82) 97 11/28/19 00:00 98.2 82 18 102/71 (81) 96 11/27/19 21:00 Room Air 11/27/19 20:00 98.2 73 18 123/74 (90) 97 11/27/19 16:00 98.1 63 18 99/66 (77) 96 11/27/19 13:22 97.6 11/27/19 12:00 97.9 66 18 103/63 (76) 98 I&O Intake and Output 11/27/19 11/28/19 19:00 07:00 Intake Total 300 ml 480 ml Balance 300 ml 480 ml Intake Oral 300 ml 480 ml # Voids 1 # Bowel Movements 1 Cardiovascular: RSR Abdomen: flat, non-tender, present bowel sounds Extremities: no edema, no tenderness, no cyanosis Plan Problems: (1) Small bowel obstruction Assessment & Plan: 59-year-old male with abdominal pain, distention, discomfort. It will hold jar of peanuts 1 night and began to develop pain in the next morning normal bowel movement but now having diarrhea. Attempted a stool softener given to him by his friend. CT from [place] reviewed and considerations of differential were potential partial bowel obstruction versus inflammation of intestines with some dilated intestines and some decompressed no transition point. Currently having loose bowel movement. Abdominal discomfort made better with morphine. Abdominal exam fairly benign. Bowel sounds noted. Findings: Welding Process Engineer film demonstrates a small amount of residual contrast within the colon, decreased from the prior study. There is extensive colonic diverticulosis again demonstrated. No gaseous distention of small bowel. No masses or unusual calcifications. After contrast ingestion, there is brisk for transit of contrast no small bowel. By 30 minutes, contrast is seen within the colon. Small bowel is normal in caliber, demonstrates normal mucosal pattern. Impression: Negative water-soluble contrast small bowel study. No evidence of bowel obstruction No acute surgical intervention planned We will monitor with serial abdominal exams diet as tolerated ambulate and out of bed d/c planning We will follow with recommendations (2) Intractable abdominal pain Catrachito Aguero Nov 28, 2019 11:33
[2019-11-28 12:00] VITALS: BP 105/71
--- NOTE | 2019-11-28 13:00 | NUR ---
NURSE NOTES: patient discharge to home with instructions. personal belongings noted. in stable condition. no c/o pain/discomfort noted. verified home address. removed IV access. removed arm band. sister, Mirlande provided transportation.
--- NOTE | 2019-11-30 11:21 | Discharge Summary ---
Discharge Summary Discharge Summary _ DATE OF ADMISSION: 11/23/2019 DATE OF DISCHARGE: 11/28/2019 DISCHARGED BY: Dr. Orr REASON FOR ADMISSION: 59 years old male with past medical history for cervical spine fracture in 2004 with subsequent repair , presented initially to [facility] due to abdominal pain for [address] scan of abdomen and pelvis revealed partial small bowel obstruction. Patient subsequently was transferred to [facility] for insurance purposes. CONSULTANTS: pulmonary /pharmacy operations specialist Dr. La surgery Dr. Aguero [facility] COURSE: Patient admitted to medical surgical floor. Patient was kept n.p.o. Surgeon seen and evaluated patient. CT scan from [place] was closely reviewed and showed partial small bowel obstruction versus inflammation of intestine with some dilated intestine with decompression, no transition point. Patient started to have loose bowel movement. Patient was followed-up with serial KUB. Pain management was addressed. Abdominal exam was fairly benign with bowel sounds noted. No acute surgical intervention was necessary at this time. Patient started on clear liquid diet. Ambulation was encouraged. Diet was slowly advanced as tolerated. Antiemetic were on board as needed. Patient was able to tolerate diet. Pain resolved. Patient clinically stabilized and was ready for discharge home. FINAL DIAGNOSES: Small bowel obstruction Intractable abdominal pain History of neck injury. DISCHARGE MEDICATIONS: Regard to medication reconciliation list DISCHARGE INSTRUCTIONS: Patient was discharged home. Follow-up with a primary care provider in 1 -2 weeks. I have been assigned to dictate discharge summary for this account. I was not involved in the patient's management. Jhoana Vale NP Nov 30, 2019 11:21
== END 2019-11-28 13:22 | disposition home or self-care (01) | DRG 390 ==
LOC: 3E 22:46
DX: K56.690 Other partial intestinal obstruction (principal); R10.9 Unspecified abdominal pain; Z87.828 Personal history of other (healed) physical injury and trauma; F19.11 Other psychoactive substance abuse, in remission
CPT/HCPCS: 36415; 74018; 74250; 80053; 82150; 83690; 83735; 84100; 85025; 85610; 85651; 85730; 86140

== ENCOUNTER 2019-12-15 12:47 | Emergency (ER) | payer MEDICARE ==
[~2019-12-15] VITALS: Ht 175.3 cm; Wt 90.7 kg
--- NOTE | 2019-12-15 13:03 | NUR ---
ED Nurse Note: Pt ambulated to ED d/t facial pain for 2-3 days (-) injury/trauma.
--- NOTE | 2019-12-15 13:09 | Emergency Room Report ---
History of Present Illness General Chief Complaint: Pain Source: Patient Present Illness HPI 59-year-old male with no symptom past medical history here complaining of 1 week of left sinus pressure and tenderness. Denies any sore throat, mucus buildup, cough and congestion. Denies any recent dental work. Denies any dental pain. Denies fever and chills, recent travel, injury to the face. Denies history of allergies. Has not taken medication for symptom relief. Denies headache, dizziness, vertigo, chest pain Allergies: Coded Allergies: No Known Allergies (Unverified , 07/13/13) Patient History Past Medical History: see triage record Past Surgical History: none Pertinent Family History: none Immunizations: UTD Reviewed Nursing Documentation: PMH: Agreed; PSxH: Agreed Nursing Documentation-PMH Hx Cardiac Problems: No Hx Cancer: No Hx Gastrointestinal Problems: No Hx Neurological Problems: No Review of Systems All Other Systems: negative except mentioned in HPI Physical Exam Vital Signs Date Time Temp Pulse Resp B/P (MAP) Pulse Ox O2 Delivery O2 Flow Rate FiO2 12/15/19 12:53 99.1 92 16 124/88 (100) 96 Room Air Sp02 EP Interpretation: reviewed, normal General Appearance: no apparent distress, alert, GCS 15, non-toxic Head: normocephalic, atraumatic Eyes: bilateral eye normal inspection, bilateral eye PERRL ENT: hearing grossly normal, normal pharynx, no angioedema, normal voice, other - Left maxillary sinus tender to palpation, no dental caries infection or abscess noted Neck: full range of motion, supple/symm/no masses Respiratory: chest non-tender, lungs clear, normal breath sounds, no rhonchi, speaking full sentences Cardiovascular #1: regular rate, rhythm, no edema, no murmur Gastrointestinal: normal bowel sounds, non tender, soft, non-distended, no guarding, no rebound Rectal: deferred Genitourinary: no CVA tenderness Musculoskeletal: back normal Neurologic: alert, motor strength/tone normal, oriented x3, sensory intact, responsive, speech normal Psychiatric: judgement/insight normal, memory normal, mood/affect normal, no suicidal/homicidal ideation Skin: no rash Lymphatic: no adenopathy Medical Decision Making PA Attestation All my diagnosis and treatment plans were reviewed ad discussed with my supervising physician Dr. Young Diagnostic Impression: Primary Impression: Sinusitis ER Course 59-year-old male with no symptom past medical history here complaining of 1 week of left sinus pressure and tenderness. Denies any sore throat, mucus buildup, cough and congestion. Denies any recent dental work. Denies any dental pain. Denies fever and chills, recent travel, injury to the face. Denies history of allergies. Has not taken medication for symptom relief. Denies headache, dizziness, vertigo, chest pain Ddx considered but are not limited to: Pharyngitis, sinusitis, facial abscess, allergic rhinitis Vital signs: are WNL, pt. is afebrile H&PE are most consistent with: Sinusitis left-sided ORDERS: Augmentin, Tylenol ED INTERVENTIONS: None required at this time. DISCHARGE: At this time pt. is stable for d/c to home. Will provide printed patient care instructions, and any necessary prescriptions. Care plan and follow up instructions have been discussed with the patient prior to discharge. At this time I did not find is necessary to do the scanning of the sinuses as this is not a recurrent issue for the patient. Advised patient to follow primary care doctor to sinus x-ray or CT scan if symptoms continue to bothersome. I also do not suspect any dental abscess however advised patient to follow-up with a dentist. If worsening symptoms return to the emergency room Last Vital Signs Date Time Temp Pulse Resp B/P (MAP) Pulse Ox O2 Delivery O2 Flow Rate FiO2 12/15/19 12:53 99.1 92 16 124/88 (100) 96 Room Air Disposition: HOME, SELF-CARE Condition: Stable Scripts Acetaminophen* (TYLENOL EXTRA STRENGTH*) 500 Mg Tablet 500 MG ORAL Q8H PRN for Prn Headache/Temp > 101, #30 TAB 0 Refills Prov: Karel Salcedo 12/15/19 Amoxicillin/Potassium Clav 875-125* (AUGMENTIN 875-125 TABLET*) 1 Each Tablet 1 TAB ORAL TWICE A DAY for 10 Days, #20 TAB Prov: Karel Salcedo 12/15/19 Patient Instructions: Sinusitis, Adult, [id number] Additional Instructions: Take medication as directed, follow-up with your primary care provider if this becomes a recurrent issue you may need sinus scan. At this time I do not see any abscess formation, your vital signs are within normal limits, minimal tenderness to palpation noted on the left maxilla secondary to sinus infection. If worsening symptoms return to the emergency room Karel Salcedo Dec 15, 2019 13:09
[2019-12-15] MEDS ORDERED: AUGMENTIN 875-1 EAC1 ORAL (13:10)
[2019-12-15] MEDS ORDERED: TYLENOL EXTRA500 MG ORAL (13:10)
[2019-12-15 13:23] VITALS: BP 124/88
--- NOTE | 2019-12-15 13:23 | NUR ---
ED Nurse Note: Pt cleared by health care Provider for discharge. DC instructions/prescription was given and explained to pt and verbalized understanding of teachings. All medical devices such as ID band removed. Pt is AAO x4, ambulatory and left with all personal belongings.
== END 2019-12-15 13:25 | disposition home or self-care (01) ==
LOC: EMR 13:10
DX: J32.9 Chronic sinusitis, unspecified (principal)
CPT/HCPCS: 99282